=== PATIENT | female | born 1970 | race Caucasian/White ===

== ENCOUNTER 2019-11-17 03:01 | Emergency (ER) | payer BC ==
[~2019-11-17] VITALS: Ht 172.7 cm; Wt 84.4 kg
[2019-11-17 03:08] VITALS: BP_SYST 149
--- NOTE | 2019-11-17 03:08 | NUR ---
Placed in room 7 . Placed on health promotion officer, blood pressure machine and pulse oximeter. To gown for exam. Side rails up. Report given to MARY LOPEZ.
--- NOTE | 2019-11-17 03:28 | NUR ---
PT BIB FAMILY TO ED C/O RT SIDE RIB PAIN W/ SOB SINCE THURSDAY.DENIES TRAUMA.DENIES COUGH,FEVER, DENIES N/V. NO OTHER COMPLIANTS NOTED VSS NO S/S OF ACUTE DISTRESS RESTING ON GURNEY RAILS UP
--- NOTE | 2019-11-17 03:48 | NUR ---
Dr. John bedside for pt eval
[2019-11-17] MEDS ORDERED: NACL 0.9% 1,000 ML IV ONE (04:09)
[2019-11-17] MEDS ORDERED: KETOROLAC TROMETHAMINE 30 MG VIAL IVP ONE (04:15)
[2019-11-17 04:26] LABS: BASOPHILS % (AUTO) 0.4 % (0.0-2.0); EOSINOPHILS # (AUTO) 0.2 K/uL (0.0-0.4); EOSINOPHILS % (AUTO) 2.9 % (0.0-4.0); HEMATOCRIT 41.5 % (36-48); HEMOGLOBIN 14.4 g/dL (12.0-16.0); LYMPHOCYTES # (AUTO) 2.5 K/uL (1.0-5.5); MEAN CORPUSCULAR HEMOGLOBIN 30 pg (27-31); MEAN CORPUSCULAR HGB CONC 35 % (32-36); MEAN CORPUSCULAR VOLUME 88 fL (79.0-98.0); MONOCYTES # (AUTO) 0.6 K/uL (0.0-1.0); MONOCYTES % (AUTO) 8.2 % (1.7-9.3); NEUTROPHILS # (AUTO) 4.3 K/uL (1.8-7.7); NEUTROPHILS % (AUTO) 55.5 % (40.0-70.0); PLATELET COUNT (AUTO) 258 K/uL (130-430); RED BLOOD CELL COUNT(AUTO) 4.73 MIL/uL (4.2-6.2); RED CELL DISTRIBUTION WIDTH 12.4 % (9.0-15.0); WHITE BLOOD COUNT (AUTO) 7.7 K/uL (4.8-10.8)
[2019-11-17 04:30] LABS: CALCIUM 9.1 mg/dL (8.4-11.0); CREATININE 0.72 mg/dL (0.55-1.30); POTASSIUM 3.5 mmol/L (3.5-5.1)
[2019-11-17 04:35] LABS: ALBUMIN 4.3 g/dL (3.4-4.8); TOTAL BILIRUBIN 0.5 mg/dL (0.0-1.0)
--- NOTE | 2019-11-17 04:38 | NUR ---
IV med and IVF well tolerated, VSS no s/s of acute distress Resting on gurney rails up
--- NOTE | 2019-11-17 05:30 | NUR ---
Dr. John bedside for pt Q and A, and re-eval
[2019-11-17] MEDS ORDERED: AMOXICILLIN 500 MG CAPSULE PO ONE (05:45)
[2019-11-17 06:00] VITALS: BP_SYST 142
--- NOTE | 2019-11-17 06:00 | NUR ---
Patient given written and verbal discharge instructions and verbalizes understanding. ER MD discussed with patient the results and treatment provided. Patient in stable condition. ID arm band removed. IV catheter removed intact and dressing applied, no active bleeding. Rx of Ibuprofen and [place] given. Patient educated on pain management and to follow up with PMD. Pain Scale 0/10 Opportunity for questions provided and answered. Medication side effect fact sheet provided.
== END 2019-11-17 06:00 | disposition home or self-care (01) ==
LOC: SED 03:01
DX: R07.89 Other chest pain (principal); Z88.6 Allergy status to analgesic agent
CPT/HCPCS: 36415; 71046; 80053; 83605; 85025; 85379; 96361; 96374; 99284; J1885; J7030